=== PATIENT | female | born 1975 | race Caucasian/White ===

== ENCOUNTER 2022-03-01 08:09 | Observation (INO) ==
[2022-03-01 09:00] LABS: Amorphous Sediment,Urine Few per hpf (None-Few); Bacteria,Urine Few per hpf (None-Few); Mucus,Urine Few per lpf (None-Few); RBC,Urine 0-3 per hpf (0-3); Squamous Epithelial Cell,Urine Moderate per hpf (None-Few)
[2022-03-01] MEDS ORDERED: Ipratropium/Albuterol Neb 3 ML IH ONE (09:07)
[2022-03-01] MEDS ORDERED: Ondansetron 4 MG/2 ML VIAL IVP ONE (09:08)
[2022-03-01] MEDS ORDERED: 0.9 % Sodium Chloride 1,000 ML IVC ONE (09:08)
[2022-03-01 09:13] LABS: Influenza A PCR Negative (Negative); Influenza B PCR Negative (Negative); Resp. Syncytial Virus PCR Negative (Negative)
[2022-03-01 09:13] LABS: BUN/Creatinine Ratio 12 (6-26); Blood Urea Nitrogen 11 mg/dL (6-20); Carbon Dioxide 25 mEq/L (23-29); Chloride 102 mEq/L (98-107); Glucose 175 mg/dL (70-105); Osmolality,Calculated 288 (280-300); Sodium 137 mEq/L (136-145); Troponin I < 0.03 ng/mL (< 0.04); eGFR For African Americans > 60 (> 60); eGFR For Non-African Americans > 60 (> 60)
[2022-03-01 09:15] LABS: Hematocrit 30.9 % (35.3-44.9); Mean Corpuscular Volume 83.7 fL (83.0-100.0); Red Blood Count 3.69 M/mcL (3.82-4.97)
[2022-03-01 09:17] LABS: Hemoglobin 10.4 g/dL (11.5-15.4); Mean Corpuscular HGB Conc 33.7 g/dL (31.6-35.5); Mean Corpuscular Hemoglobin 28.2 pg (28.0-33.3); Neutrophils # 1.3 K/mcL (1.6-8.9); Red Cell Distribution Width 15.8 % (11.5-14.5); White Blood Count 1.8 K/mcL (4.3-11.1)
[2022-03-01 09:30] LABS: Alanine Aminotransferase 23 Units/L (7-52); Albumin 2.8 g/dL (3.5-5.7); Albumin/Globulin Ratio 0.7 (1.1-2.2); Alkaline Phosphatase 107 Units/L (34-104); Aspartate Amino Transferase 36 Units/L (13-39); Bilirubin,Direct 0.8 mg/dL (0.0-0.2); Bilirubin,Indirect 2.1 mg/dL (0.0-1.0); Bilirubin,Total 2.9 mg/dL (0.3-1.0); Globulin 3.8 g/dL (2.4-3.5); Lipase 152 Units/L (11-82); Total Protein 6.6 g/dL (6.4-8.9)
[2022-03-01 09:37] LABS: Mean Platelet Volume 11.9 fL (9.4-12.4); Platelet Count 43 K/mcL (140-400)
[2022-03-01 09:46] LABS: Eosinophils # 0.1 K/mcL (0.0-0.6); Lymphocytes # 0.3 K/mcL (0.6-4.6); Monocytes # 0.1 K/mcL (0.0-1.3)
[2022-03-01 09:47] LABS: Anisocytosis 1+ (Not Present); Hypochromasia Present (Not Present); Platelet Estimate Marked Decrease (Normal); Poikilocytosis 1+ (Not Present)
[2022-03-01] MEDS ORDERED: Iopamidol - 370 500 ML MLS IVP ONE ×2 (09:57→11:13)
[2022-03-01 10:00] LABS: Bilirubin,Urine Negative (Negative); Blood,Urine Small (Negative); Clarity,Urine Turbid (Clear); Color,Urine Yellow (Yellow); Glucose,Urine (UA) Normal (Normal); Hyaline Casts,Urine Few per lpf (None Seen); Ketones,Urine Negative (Negative); Leukocyte Esterase,Urine Small (Negative); Nitrite,Urine Negative (Negative); Protein,Urine Negative (Neg-Trace); Specific Gravity,Urine 1.013 (1.010-1.025)
[2022-03-01 10:47] LABS: SARS-CoV-2 by PCR (In House) Positive (Negative)
[2022-03-01] MEDS ORDERED: methylPREDNISolone 125 MG/2 ML VIAL IVP ONE (11:14)
[2022-03-01] MEDS ORDERED: Albuterol 2.5 MG/3 ML NEBULIZER IH ONE (11:15)
[2022-03-01] MEDS ORDERED: Naloxone 0.4 MG/ML INJ IVP PRN (13:01)
[2022-03-01] MEDS ORDERED: Mag Hydrox/Al Hydrox/Simeth 30 ML UDC PO PRN (13:01)
[2022-03-01] MEDS ORDERED: *HR* Dextrose 50 % in Water (Syg) 50 ML SYRINGE IVP PRN (13:04)
[2022-03-01] MEDS ORDERED: Dextrose Gel 15 GM/37.5 ML TUBE PO PRN ×2 (13:04)
[2022-03-01] MEDS ORDERED: D5% in Water 1,000 ML IVC PRN (13:04)
[2022-03-01] MEDS ORDERED: Perflutren Lipid Microsphere 1.3 ML in 0.9 % Sodium Chloride 8.7 ML IVP PRN (13:07)
[2022-03-01] MEDS: Insulin LISPRO 300 UNITS/3 ML VIAL SUBQ SCH ×3 (14:20→23:20)
[2022-03-01 14:41] LABS: Estimated Average Glucose 97 mg/dl
[2022-03-01 14:58] LABS: Eosinophils % 1.3 %; Hemoglobin 9.5 g/dL (11.5-15.4)
[2022-03-01 15:00] LABS: Basophils % 1.3 %; Immature Platelets 7.8 % (1.1-6.1); Lymphocytes # 0.1 K/mcL (0.6-4.6); Lymphocytes % 10.7 %; Mean Corpuscular HGB Conc 33.9 g/dL (31.6-35.5); Mean Corpuscular Hemoglobin 28.8 pg (28.0-33.3); Mean Corpuscular Volume 84.8 fL (83.0-100.0); Mean Platelet Volume 12.8 fL (9.4-12.4); Monocytes # 0.1 K/mcL (0.0-1.3); Neutrophils # 0.6 K/mcL (1.6-8.9); Red Cell Distribution Width 15.8 % (11.5-14.5); Segmented Neutrophils % 74.7 %
[2022-03-01 15:07] LABS: Platelet Count 33 K/mcL (140-400); White Blood Count 0.8 K/mcL (4.3-11.1)
[2022-03-01 15:15] LABS: Hypochromasia Present (Not Present); Poikilocytosis 2+ (Not Present)
[2022-03-01 15:16] LABS: Platelet Estimate Marked Decrease (Normal)
[2022-03-01] MEDS ORDERED: Ipratropium/Albuterol Neb 3 ML IH SCH (16:00)
[2022-03-01] MEDS ORDERED: Ibuprofen 600 MG TABLET PO ONE (17:00)
[2022-03-01] MEDS: Ipratropium 1 PUFF INHALER IH SCH ×2 (19:52→23:39)
[2022-03-01] MEDS: Neosporin OINT 15 GM TUBE TP SCH (23:14)
[2022-03-01] MEDS: Pregabalin 75 MG CAPSULE PO SCH (23:14)
[2022-03-01] MEDS: rOPINIRole 0.25 MG TABLET PO SCH (23:15)
[2022-03-02] MEDS ORDERED: Ibuprofen 600 MG TABLET PO ONE (02:05)
[2022-03-02] MEDS: Ipratropium 1 PUFF INHALER IH SCH ×6 (03:29→23:57)
[2022-03-02 03:39] LABS: Albumin 2.4 g/dL (3.5-5.7); Albumin/Globulin Ratio 0.7 (1.1-2.2); Bilirubin,Total 1.4 mg/dL (0.3-1.0); Calcium 7.3 mg/dL (8.6-10.3); Globulin 3.4 g/dL (2.4-3.5); Potassium 4.2 mEq/L (3.5-5.1); Total Protein 5.8 g/dL (6.4-8.9)
[2022-03-02 06:55] LABS: Hemoglobin 8.3 g/dL (11.5-15.4); Immature Granulocytes % 0.8 % (0-4)
[2022-03-02 06:57] LABS: Hematocrit 25.4 % (35.3-44.9); Immature Platelets 8.8 % (1.1-6.1); Lymphocytes # 0.2 K/mcL (0.6-4.6); Lymphocytes % 12.3 %; Mean Corpuscular HGB Conc 32.7 g/dL (31.6-35.5); Mean Corpuscular Hemoglobin 28.2 pg (28.0-33.3); Mean Corpuscular Volume 86.4 fL (83.0-100.0); Monocytes # 0.1 K/mcL (0.0-1.3); Monocytes % 6.6 %; Red Blood Count 2.94 M/mcL (3.82-4.97); Red Cell Distribution Width 15.6 % (11.5-14.5); Segmented Neutrophils % 80.3 %; White Blood Count 1.2 K/mcL (4.3-11.1)
[2022-03-02 07:03] LABS: Platelet Count 28 K/mcL (140-400)
[2022-03-02 07:34] LABS: Platelet Estimate Marked Decrease (Normal)
[2022-03-02 07:44] LABS: Folate 12.1 ng/mL (3.0-16.0)
[2022-03-02] MEDS: Insulin LISPRO 300 UNITS/3 ML VIAL SUBQ SCH ×4 (09:29→20:11)
[2022-03-02] MEDS: Nicotine 14 MG PATCH.TD24 TD SCH (09:29)
[2022-03-02] MEDS: Pregabalin 75 MG CAPSULE PO SCH ×3 (09:30→20:51)
[2022-03-02] MEDS: Neosporin OINT 15 GM TUBE TP SCH ×2 (09:30→20:52)
[2022-03-02] MEDS: GuaiFENesin/Dextromethorphan TABLET PO PRN (11:03)
[2022-03-02] MEDS: Torsemide 20 MG TABLET PO SCH (11:05)
[2022-03-02 15:48] LABS: INR 1.8; Prothrombin Time 20.5 Seconds (9.4-12.1)
[2022-03-02 15:58] LABS: % Iron Saturation 3 % (15-50); Iron 12 mcg/dL (50-170); Lactate Dehydrogenase 312 Units/L (140-271); Transferrin 258 mg/dL (203-362)
[2022-03-02 16:12] LABS: Ferritin 30 ng/mL (10-120)
[2022-03-02 16:51] LABS: Hepatitis B Surface Antigen Nonreactive (Nonreactive)
[2022-03-02 17:21] LABS: Hepatitis B Core IgM Nonreactive (Nonreactive)
[2022-03-02 17:23] LABS: Hepatitis A Antibody IgM Nonreactive (Nonreactive)
[2022-03-02 19:30] LABS: Hepatitis C Virus Antibody Reactive (Nonreactive)
[2022-03-02] MEDS: Melatonin 3 MG TABLET PO PRN (20:51)
[2022-03-02] MEDS: rOPINIRole 0.25 MG TABLET PO SCH (20:52)
[2022-03-03 01:58] LABS: Hematocrit 24.6 % (35.3-44.9); Mean Corpuscular Volume 85.7 fL (83.0-100.0); Red Blood Count 2.87 M/mcL (3.82-4.97)
[2022-03-03 02:00] LABS: Eosinophils % 2.5 %; Hemoglobin 8.1 g/dL (11.5-15.4); Immature Platelets 7.6 % (1.1-6.1); Lymphocytes # 0.3 K/mcL (0.6-4.6); Lymphocytes % 26.2 %; Mean Corpuscular HGB Conc 32.9 g/dL (31.6-35.5); Mean Corpuscular Hemoglobin 28.2 pg (28.0-33.3); Mean Platelet Volume 11.9 fL (9.4-12.4); Monocytes # 0.1 K/mcL (0.0-1.3); Monocytes % 8.2 %; Neutrophils # 0.8 K/mcL (1.6-8.9); Red Cell Distribution Width 15.8 % (11.5-14.5); Segmented Neutrophils % 63.1 %; White Blood Count 1.2 K/mcL (4.3-11.1)
[2022-03-03 02:03] LABS: Platelet Count 34 K/mcL (140-400)
[2022-03-03 02:16] LABS: Blood Urea Nitrogen 18 mg/dL (6-20); Calcium 7.2 mg/dL (8.6-10.3); Carbon Dioxide 26 mEq/L (23-29); Chloride 108 mEq/L (98-107); Glucose 166 mg/dL (70-105); Osmolality,Calculated 294 (280-300); Potassium 3.5 mEq/L (3.5-5.1); Sodium 139 mEq/L (136-145)
[2022-03-03 03:22] LABS: BUN/Creatinine Ratio 21 (6-26)
[2022-03-03 03:23] LABS: eGFR For African Americans > 60 (> 60); eGFR For Non-African Americans > 60 (> 60)
[2022-03-03] MEDS: Ipratropium 1 PUFF INHALER IH SCH ×6 (03:37→23:07)
[2022-03-03] MEDS: Insulin LISPRO 300 UNITS/3 ML VIAL SUBQ SCH ×4 (09:51→21:03)
[2022-03-03] MEDS: Torsemide 20 MG TABLET PO SCH (09:53)
[2022-03-03] MEDS: Nicotine 14 MG PATCH.TD24 TD SCH (09:53)
[2022-03-03] MEDS: Pregabalin 75 MG CAPSULE PO SCH ×3 (09:53→21:04)
[2022-03-03] MEDS: Neosporin OINT 15 GM TUBE TP SCH ×2 (09:55→21:04)
[2022-03-03] MEDS ORDERED: Ibuprofen 600 MG TABLET PO ONE (12:17)
[2022-03-03] MEDS: cefTRIAXone 1,000 MG in 0.9 % Sodium Chloride 10 ML IVP SCH (14:45)
[2022-03-03] MEDS: rOPINIRole 0.25 MG TABLET PO SCH (21:04)
[2022-03-04] MEDS: Ipratropium 1 PUFF INHALER IH SCH ×6 (04:34→23:04)
[2022-03-04] MEDS: Insulin LISPRO 300 UNITS/3 ML VIAL SUBQ SCH ×4 (08:44→20:01)
[2022-03-04] MEDS: Nicotine 14 MG PATCH.TD24 TD SCH (09:15)
[2022-03-04] MEDS: Pregabalin 75 MG CAPSULE PO SCH ×3 (09:15→20:04)
[2022-03-04] MEDS: Torsemide 20 MG TABLET PO SCH (09:15)
[2022-03-04] MEDS: Neosporin OINT 15 GM TUBE TP SCH ×2 (09:16→20:01)
[2022-03-04] MEDS: cefTRIAXone 1,000 MG in 0.9 % Sodium Chloride 10 ML IVP SCH (09:16)
[2022-03-04] MEDS: GuaiFENesin/Dextromethorphan TABLET PO PRN ×2 (10:15→23:46)
[2022-03-04 11:25] LABS: Hematocrit 28.7 % (35.3-44.9); Hemoglobin 9.4 g/dL (11.5-15.4); Mean Corpuscular HGB Conc 32.8 g/dL (31.6-35.5); Mean Corpuscular Hemoglobin 28.5 pg (28.0-33.3); Mean Platelet Volume 13.5 fL (9.4-12.4); Monocytes # 0.1 K/mcL (0.0-1.3); Red Cell Distribution Width 15.9 % (11.5-14.5); White Blood Count 1.5 K/mcL (4.3-11.1)
[2022-03-04 11:27] LABS: Platelet Count 39 K/mcL (140-400)
[2022-03-04 11:47] LABS: Lymphocytes # 0.6 K/mcL (0.6-4.6); Neutrophils # 0.8 K/mcL (1.6-8.9); Poikilocytosis 1+ (Not Present)
[2022-03-04 11:48] LABS: Hypochromasia Present (Not Present); Platelet Estimate Decreased (Normal)
[2022-03-04 11:53] LABS: BUN/Creatinine Ratio 24 (6-26); Blood Urea Nitrogen 17 mg/dL (6-20); Calcium 7.7 mg/dL (8.6-10.3); Carbon Dioxide 26 mEq/L (23-29); Chloride 108 mEq/L (98-107); Glucose 141 mg/dL (70-105); Osmolality,Calculated 294 (280-300); Potassium 3.6 mEq/L (3.5-5.1); Sodium 140 mEq/L (136-145); eGFR For African Americans > 60 (> 60); eGFR For Non-African Americans > 60 (> 60)
[2022-03-04] MEDS ORDERED: Fluconazole 150 MG TABLET PO ONE (19:36)
[2022-03-04] MEDS: rOPINIRole 0.25 MG TABLET PO SCH (20:01)
[2022-03-04] MEDS: Lactobacillus 1 EACH CAP.SPRINK PO SCH (20:02)
[2022-03-05] MEDS: Ipratropium 1 PUFF INHALER IH SCH ×6 (04:14→23:39)
[2022-03-05 05:56] LABS: Basophils % 0.6 %; Immature Granulocytes % 0.6 % (0-4)
[2022-03-05 05:57] LABS: Eosinophils % 5.7 %; Hematocrit 29.4 % (35.3-44.9); Hemoglobin 9.8 g/dL (11.5-15.4); Immature Platelets 8.7 % (1.1-6.1); Lymphocytes % 40.8 %; Mean Corpuscular HGB Conc 33.3 g/dL (31.6-35.5); Mean Corpuscular Hemoglobin 28.2 pg (28.0-33.3); Mean Corpuscular Volume 84.5 fL (83.0-100.0); Mean Platelet Volume 12.1 fL (9.4-12.4); Monocytes % 6.9 %; Red Blood Count 3.48 M/mcL (3.82-4.97); Red Cell Distribution Width 15.6 % (11.5-14.5); Segmented Neutrophils % 45.4 %; White Blood Count 1.7 K/mcL (4.3-11.1)
[2022-03-05 05:58] LABS: Eosinophils # 0.1 K/mcL (0.0-0.6); Lymphocytes # 0.7 K/mcL (0.6-4.6); Monocytes # 0.1 K/mcL (0.0-1.3); Neutrophils # 0.8 K/mcL (1.6-8.9)
[2022-03-05 06:20] LABS: Platelet Count 36 K/mcL (140-400)
[2022-03-05 06:21] LABS: Platelet Estimate Decreased (Normal)
[2022-03-05 06:23] LABS: BUN/Creatinine Ratio 19 (6-26); Blood Urea Nitrogen 14 mg/dL (6-20); Calcium 7.8 mg/dL (8.6-10.3); Carbon Dioxide 29 mEq/L (23-29); Chloride 105 mEq/L (98-107); Glucose 82 mg/dL (70-105); Osmolality,Calculated 286 (280-300); Potassium 3.5 mEq/L (3.5-5.1); Sodium 138 mEq/L (136-145); eGFR For African Americans > 60 (> 60); eGFR For Non-African Americans > 60 (> 60)
[2022-03-05] MEDS: Lactobacillus 1 EACH CAP.SPRINK PO SCH ×2 (08:36→21:05)
[2022-03-05] MEDS: MOM Conc 10 ML UD.LIQ PO PRN ×2 (08:36→21:12)
[2022-03-05] MEDS: Torsemide 20 MG TABLET PO SCH (08:36)
[2022-03-05] MEDS: Pregabalin 75 MG CAPSULE PO SCH ×3 (08:36→21:04)
[2022-03-05] MEDS: Nicotine 14 MG PATCH.TD24 TD SCH (08:40)
[2022-03-05] MEDS: Insulin LISPRO 300 UNITS/3 ML VIAL SUBQ SCH ×4 (08:40→20:53)
[2022-03-05] MEDS: cefTRIAXone 1,000 MG in 0.9 % Sodium Chloride 10 ML IVP SCH (08:42)
[2022-03-05 09:58] LABS: ANA IgG by ELISA NONE DETECTED (None Detected)
[2022-03-05 10:18] LABS: AFP Tumor Marker Non-Pregnant 4 ng/mL (0-9); Kappa Qnt Free Light Chains 86.22 mg/L (3.30-19.40); Lambda Qnt Free Light Chains 68.16 mg/L (5.71-26.30)
[2022-03-05] MEDS: Neosporin OINT 15 GM TUBE TP SCH ×2 (10:21→21:05)
[2022-03-05] MEDS: GuaiFENesin/Dextromethorphan TABLET PO PRN ×2 (15:41→21:12)
[2022-03-05] MEDS: rOPINIRole 0.25 MG TABLET PO SCH (21:09)
[2022-03-05] MEDS: Melatonin 3 MG TABLET PO PRN (21:12)
[2022-03-06] MEDS: Ipratropium 1 PUFF INHALER IH SCH ×6 (04:01→23:34)
[2022-03-06 06:14] LABS: Basophils % 0.6 %; Eosinophils # 0.1 K/mcL (0.0-0.6); Eosinophils % 5.2 %; Hematocrit 28.4 % (35.3-44.9); Hemoglobin 9.2 g/dL (11.5-15.4); Immature Platelets 8.2 % (1.1-6.1); Lymphocytes # 0.5 K/mcL (0.6-4.6); Lymphocytes % 34.4 %; Mean Corpuscular HGB Conc 32.4 g/dL (31.6-35.5); Mean Corpuscular Hemoglobin 27.5 pg (28.0-33.3); Mean Corpuscular Volume 84.8 fL (83.0-100.0); Mean Platelet Volume 11.6 fL (9.4-12.4); Monocytes # 0.1 K/mcL (0.0-1.3); Monocytes % 7.8 %; Neutrophils # 0.8 K/mcL (1.6-8.9); Red Blood Count 3.35 M/mcL (3.82-4.97); Red Cell Distribution Width 15.4 % (11.5-14.5); White Blood Count 1.5 K/mcL (4.3-11.1)
[2022-03-06 06:15] LABS: Platelet Count 38 K/mcL (140-400)
[2022-03-06] MEDS: Lactobacillus 1 EACH CAP.SPRINK PO SCH ×2 (10:29→20:10)
[2022-03-06] MEDS: GuaiFENesin/Dextromethorphan TABLET PO PRN (10:29)
[2022-03-06] MEDS: Pregabalin 75 MG CAPSULE PO SCH ×3 (10:29→20:10)
[2022-03-06] MEDS: Torsemide 20 MG TABLET PO SCH (10:29)
[2022-03-06] MEDS: Nicotine 14 MG PATCH.TD24 TD SCH (10:30)
[2022-03-06] MEDS: Neosporin OINT 15 GM TUBE TP SCH ×2 (10:36→20:10)
[2022-03-06] MEDS: Ibuprofen 600 MG TABLET PO PRN ×2 (10:36→20:19)
[2022-03-06] MEDS: Ondansetron ODT 4 MG TAB.RAPDIS SL PRN ×2 (10:38→20:19)
[2022-03-06] MEDS: Insulin LISPRO 300 UNITS/3 ML VIAL SUBQ SCH ×4 (10:41→20:10)
[2022-03-06] MEDS ORDERED: Lactulose Oral Soln 20 GM/30 ML UDC PO SCH (12:30)
[2022-03-06] MEDS: Albumin 25% 25gram/100mL 25 GM/100 ML IV.SOLN IVC SCH ×3 (12:55→17:36)
[2022-03-06] MEDS ORDERED: Lactulose Oral Soln 20 GM/30 ML UDC PO ONE (13:47)
[2022-03-06] MEDS ORDERED: Lactulose Oral Soln 20 GM/30 ML UDC PO STA (13:48)
[2022-03-06] MEDS ORDERED: Lactulose Oral Soln 20 GM/30 ML UDC PO PRN (15:01)
[2022-03-06] MEDS: rOPINIRole 0.25 MG TABLET PO SCH (20:10)
[2022-03-07 03:28] LABS: Alanine Aminotransferase 18 Units/L (7-52); Albumin/Globulin Ratio 1.1 (1.1-2.2); Alkaline Phosphatase 82 Units/L (34-104); Aspartate Amino Transferase 27 Units/L (13-39); BUN/Creatinine Ratio 18 (6-26); Bilirubin,Total 1.2 mg/dL (0.3-1.0); Blood Urea Nitrogen 15 mg/dL (6-20); Calcium 8.3 mg/dL (8.6-10.3); Carbon Dioxide 28 mEq/L (23-29); Chloride 109 mEq/L (98-107); Globulin 2.8 g/dL (2.4-3.5); Glucose 99 mg/dL (70-105); Magnesium 1.6 mg/dL (1.6-2.6); Osmolality,Calculated 289 (280-300); Potassium 3.7 mEq/L (3.5-5.1); Sodium 139 mEq/L (136-145); Total Protein 5.8 g/dL (6.4-8.9); eGFR For African Americans > 60 (> 60); eGFR For Non-African Americans > 60 (> 60)
[2022-03-07 03:33] LABS: Eosinophils # 0.1 K/mcL (0.0-0.6); Hematocrit 25.4 % (35.3-44.9); Hemoglobin 8.2 g/dL (11.5-15.4); Immature Platelets 9.9 % (1.1-6.1); Lymphocytes # 0.5 K/mcL (0.6-4.6); Mean Corpuscular HGB Conc 32.3 g/dL (31.6-35.5); Mean Corpuscular Hemoglobin 27.7 pg (28.0-33.3); Mean Corpuscular Volume 85.8 fL (83.0-100.0); Monocytes # 0.2 K/mcL (0.0-1.3); Neutrophils # 0.7 K/mcL (1.6-8.9); Red Blood Count 2.96 M/mcL (3.82-4.97); Red Cell Distribution Width 15.2 % (11.5-14.5); White Blood Count 1.4 K/mcL (4.3-11.1)
[2022-03-07 04:01] LABS: Platelet Count 29 K/mcL (140-400)
[2022-03-07] MEDS: Ipratropium 1 PUFF INHALER IH SCH ×5 (04:01→20:09)
[2022-03-07 06:21] LABS: Anisocytosis 1+ (Not Present); Platelet Estimate Marked Decrease (Normal)
[2022-03-07] MEDS: Ibuprofen 600 MG TABLET PO PRN (09:46)
[2022-03-07] MEDS: Pregabalin 75 MG CAPSULE PO SCH ×3 (09:47→20:17)
[2022-03-07] MEDS: Torsemide 20 MG TABLET PO SCH (09:47)
[2022-03-07] MEDS: Nicotine 14 MG PATCH.TD24 TD SCH (09:47)
[2022-03-07] MEDS: Lactobacillus 1 EACH CAP.SPRINK PO SCH ×2 (09:47→20:17)
[2022-03-07] MEDS: Neosporin OINT 15 GM TUBE TP SCH ×2 (09:47→20:18)
[2022-03-07] MEDS: Insulin LISPRO 300 UNITS/3 ML VIAL SUBQ SCH ×4 (10:03→21:14)
[2022-03-07] MEDS: Iron Sucrose Complex 250 MG in 0.9 % Sodium Chloride 250 ML IVPB SCH (12:53)
[2022-03-07 18:17] LABS: Alpha 2 Globulin (PEP) 0.42 g/dL (0.48-1.05); Beta Globulin (PEP) 0.81 g/dL (0.48-1.10)
[2022-03-07] MEDS: rOPINIRole 0.25 MG TABLET PO SCH (20:17)
[2022-03-07] MEDS: Saline Nasal Spray 44 ML BOTTLE NS PRN (20:24)
[2022-03-08] MEDS: Ipratropium 1 PUFF INHALER IH SCH ×7 (00:23→23:59)
[2022-03-08 06:22] LABS: Hemoglobin 8.5 g/dL (11.5-15.4); Red Cell Distribution Width 15.2 % (11.5-14.5); White Blood Count 1.4 K/mcL (4.3-11.1)
[2022-03-08 06:24] LABS: Immature Platelets 11.4 % (1.1-6.1); Mean Corpuscular HGB Conc 32.7 g/dL (31.6-35.5); Mean Corpuscular Volume 85.5 fL (83.0-100.0); Red Blood Count 3.04 M/mcL (3.82-4.97)
[2022-03-08 06:26] LABS: Platelet Count 30 K/mcL (140-400)
[2022-03-08 06:43] LABS: Alanine Aminotransferase 18 Units/L (7-52); Albumin 2.9 g/dL (3.5-5.7); Alkaline Phosphatase 87 Units/L (34-104); Aspartate Amino Transferase 29 Units/L (13-39); BUN/Creatinine Ratio 19 (6-26); Bilirubin,Total 1.1 mg/dL (0.3-1.0); Blood Urea Nitrogen 17 mg/dL (6-20); Calcium 8.4 mg/dL (8.6-10.3); Carbon Dioxide 28 mEq/L (23-29); Chloride 106 mEq/L (98-107); Globulin 2.9 g/dL (2.4-3.5); Glucose 93 mg/dL (70-105); Osmolality,Calculated 285 (280-300); Potassium 3.6 mEq/L (3.5-5.1); Sodium 137 mEq/L (136-145); Total Protein 5.8 g/dL (6.4-8.9); eGFR For African Americans > 60 (> 60); eGFR For Non-African Americans > 60 (> 60)
[2022-03-08 07:35] LABS: IFE Reflexed NOT DONE
[2022-03-08] MEDS: Insulin LISPRO 300 UNITS/3 ML VIAL SUBQ SCH ×4 (09:25→20:30)
[2022-03-08] MEDS: Torsemide 20 MG TABLET PO SCH (09:33)
[2022-03-08] MEDS: Lactobacillus 1 EACH CAP.SPRINK PO SCH ×2 (09:33→20:29)
[2022-03-08] MEDS: Pregabalin 75 MG CAPSULE PO SCH ×3 (09:34→20:29)
[2022-03-08] MEDS: Nicotine 14 MG PATCH.TD24 TD SCH (09:34)
[2022-03-08] MEDS: Saline Nasal Spray 44 ML BOTTLE NS PRN (09:35)
[2022-03-08] MEDS: Iron Sucrose Complex 250 MG in 0.9 % Sodium Chloride 250 ML IVPB SCH (10:57)
[2022-03-08] MEDS: Neosporin OINT 15 GM TUBE TP SCH ×2 (10:57→20:30)
[2022-03-08] MEDS: rOPINIRole 0.25 MG TABLET PO SCH (20:29)
[2022-03-08 23:46] VITALS: BP 109/63; PULSE 68; TEMP 98.4
[2022-03-09] MEDS: Ipratropium 1 PUFF INHALER IH SCH ×3 (04:21→11:10)
[2022-03-09 07:44] VITALS: O2SAT 94
[2022-03-09] MEDS: Nicotine 14 MG PATCH.TD24 TD SCH (10:13)
[2022-03-09] MEDS: Insulin LISPRO 300 UNITS/3 ML VIAL SUBQ SCH (10:13)
[2022-03-09] MEDS: Pregabalin 75 MG CAPSULE PO SCH (10:14)
[2022-03-09] MEDS: Lactobacillus 1 EACH CAP.SPRINK PO SCH (10:14)
[2022-03-09] MEDS: Neosporin OINT 15 GM TUBE TP SCH (10:15)
[2022-03-09] MEDS: Torsemide 20 MG TABLET PO SCH (10:15)
[2022-03-09] MEDS: Iron Sucrose Complex 250 MG in 0.9 % Sodium Chloride 250 ML IVPB SCH (10:20)
== END 2022-03-09 12:35 | disposition home or self-care (01) ==
LOC: EMEROOARM 08:09 → 3NENU 08:09 → SUATTDRO 12:50 → 3NENU 14:00
PROVIDERS: ADMIT Internal Medicine; ATTEND Student in an Organized Health Care Education/Training Program

== ENCOUNTER 2022-03-27 16:45 | Observation (INO) ==
[2022-03-27 17:45] LABS: Hemoglobin 10.5 g/dL (11.5-15.4); Immature Granulocytes % 0.3 % (0-4); Mean Corpuscular Volume 87.9 fL (83.0-100.0)
[2022-03-27 17:47] LABS: Eosinophils # 0.1 K/mcL (0.0-0.6); Eosinophils % 4.7 %; Hematocrit 31.3 % (35.3-44.9); Immature Platelets 7.7 % (1.1-6.1); Lymphocytes # 0.8 K/mcL (0.6-4.6); Lymphocytes % 25.4 %; Mean Corpuscular HGB Conc 33.5 g/dL (31.6-35.5); Mean Corpuscular Hemoglobin 29.5 pg (28.0-33.3); Monocytes # 0.3 K/mcL (0.0-1.3); Monocytes % 9.8 %; Platelet Count 38 K/mcL (140-400); Red Blood Count 3.56 M/mcL (3.82-4.97); Red Cell Distribution Width 18.9 % (11.5-14.5); Segmented Neutrophils % 58.8 %
[2022-03-27 17:48] LABS: Neutrophils # 1.8 K/mcL (1.6-8.9)
[2022-03-27 18:05] LABS: Alanine Aminotransferase 27 Units/L (7-52); Albumin 3.3 g/dL (3.5-5.7); Alkaline Phosphatase 112 Units/L (34-104); Aspartate Amino Transferase 37 Units/L (13-39); BUN/Creatinine Ratio 16 (6-26); Bilirubin,Direct 0.6 mg/dL (0.0-0.2); Bilirubin,Total 2.6 mg/dL (0.3-1.0); Blood Urea Nitrogen 16 mg/dL (6-20); Calcium 8.9 mg/dL (8.6-10.3); Carbon Dioxide 28 mEq/L (23-29); Chloride 105 mEq/L (98-107); Globulin 3.3 g/dL (2.4-3.5); Glucose 121 mg/dL (70-105); Lipase 73 Units/L (11-82); Osmolality,Calculated 294 (280-300); Sodium 141 mEq/L (136-145); Total Protein 6.6 g/dL (6.4-8.9); Troponin I < 0.03 ng/mL (< 0.04)
[2022-03-27 18:18] LABS: VBG HCO3 29 mEq/L (21-27); VBG PCO2 41 mmHg (41-51); VBG PH 7.45 pH Units (7.32-7.42); VBG PO2 63 mmHg (25-50)
[2022-03-27 19:35] LABS: Bacteria,Urine Few per hpf (None-Few); RBC,Urine 0-3 per hpf (0-3); Squamous Epithelial Cell,Urine Moderate per hpf (None-Few); WBC,Urine 0-3 per hpf (0-3)
[2022-03-27 19:36] LABS: Bilirubin,Urine Negative (Negative); Blood,Urine Trace (Negative); Clarity,Urine Clear (Clear); Color,Urine Yellow (Yellow); Glucose,Urine (UA) Normal (Normal); Ketones,Urine Negative (Negative); Leukocyte Esterase,Urine Negative (Negative); Nitrite,Urine Negative (Negative); PH,Urine 7.5 pH Units (5.0-8.0); Protein,Urine Negative (Neg-Trace); Specific Gravity,Urine 1.014 (1.010-1.025)
[2022-03-27] MEDS ORDERED: Lactulose Oral Soln 20 GM/30 ML UDC PO ONE (20:35)
[2022-03-27] MEDS ORDERED: Naloxone 0.4 MG/ML INJ IVP PRN (23:35)
[2022-03-28] MEDS ORDERED: Lactulose Oral Soln 20 GM/30 ML UDC PO ONE (00:30)
[2022-03-28] MEDS: Ondansetron ODT 4 MG TAB.RAPDIS SL PRN ×2 (00:42→21:21)
[2022-03-28] MEDS ORDERED: Acetaminophen 325 MG TABLET PO PRN (08:29)
[2022-03-28] MEDS: Pregabalin 75 MG CAPSULE PO SCH ×3 (09:32→20:47)
[2022-03-28] MEDS: Furosemide 20 MG TABLET PO SCH (09:32)
[2022-03-28] MEDS: Nicotine 14 MG PATCH.TD24 TD SCH (09:32)
[2022-03-28] MEDS: *HR* HYDROcodone/Acet 5/325 mg TABLET PO PRN ×3 (09:32→23:39)
[2022-03-28] MEDS: Lactulose Oral Soln 20 GM/30 ML UDC PO SCH ×2 (09:33→20:47)
[2022-03-28 11:25] LABS: Albumin 3.3 g/dL (3.5-5.7); Bilirubin,Total 3.3 mg/dL (0.3-1.0); Calcium 9.3 mg/dL (8.6-10.3); Globulin 3.4 g/dL (2.4-3.5); Magnesium 1.7 mg/dL (1.6-2.6); Phosphorous 4.1 mg/dL (2.7-4.5); Potassium 3.4 mEq/L (3.5-5.1); Total Protein 6.7 g/dL (6.4-8.9)
[2022-03-28] MEDS ORDERED: Iopamidol - 370 500 ML MLS IVP ONE (11:34)
[2022-03-28 11:42] LABS: Basophils % 1.2 %; Mean Corpuscular HGB Conc 33.1 g/dL (31.6-35.5); Mean Corpuscular Hemoglobin 29.5 pg (28.0-33.3)
[2022-03-28 11:43] LABS: Eosinophils # 0.1 K/mcL (0.0-0.6); Hemoglobin 10.6 g/dL (11.5-15.4); Immature Platelets 9.9 % (1.1-6.1); Lymphocytes # 0.7 K/mcL (0.6-4.6); Mean Corpuscular Volume 89.1 fL (83.0-100.0); Monocytes # 0.3 K/mcL (0.0-1.3); Monocytes % 12.7 %; Neutrophils # 1.5 K/mcL (1.6-8.9); Red Blood Count 3.59 M/mcL (3.82-4.97); Red Cell Distribution Width 18.8 % (11.5-14.5); Segmented Neutrophils % 56.1 %; White Blood Count 2.6 K/mcL (4.3-11.1)
[2022-03-28 11:47] LABS: Platelet Count 35 K/mcL (140-400)
[2022-03-28 11:48] LABS: Platelet Estimate Decreased (Normal)
[2022-03-28] MEDS ORDERED: Lactulose 200 GM, Sodium Chloride IRRigation 700 ML RC ONE (14:18)
[2022-03-28] MEDS: Melatonin 3 MG TABLET PO PRN (21:21)
[2022-03-28] MEDS ORDERED: Neosporin OINT 1 APPL PACKET TP ONE (23:37)
[2022-03-29] MEDS ORDERED: Neosporin OINT 15 GM TUBE TP ONE (00:45)
[2022-03-29] MEDS ORDERED: Ketorolac 30 MG/ML VIAL IVP ONE (03:07)
[2022-03-29 06:38] LABS: Hemoglobin 10.1 g/dL (11.5-15.4); Red Cell Distribution Width 18.4 % (11.5-14.5)
[2022-03-29 06:40] LABS: Eosinophils # 0.1 K/mcL (0.0-0.6); Hematocrit 30.7 % (35.3-44.9); Immature Platelets 8.9 % (1.1-6.1); Mean Corpuscular HGB Conc 32.9 g/dL (31.6-35.5); Mean Corpuscular Hemoglobin 29.4 pg (28.0-33.3); Mean Corpuscular Volume 89.2 fL (83.0-100.0); Red Blood Count 3.44 M/mcL (3.82-4.97); White Blood Count 1.9 K/mcL (4.3-11.1)
[2022-03-29 06:47] LABS: Platelet Count 27 K/mcL (140-400)
[2022-03-29 06:53] LABS: Calcium 8.9 mg/dL (8.6-10.3); Potassium 3.6 mEq/L (3.5-5.1)
[2022-03-29] MEDS ORDERED: Albuterol 2.5 MG/3 ML NEBULIZER IH PRN (07:34)
[2022-03-29 07:49] LABS: Lymphocytes # 0.3 K/mcL (0.6-4.6); Monocytes # 0.2 K/mcL (0.0-1.3); Neutrophils # 1.3 K/mcL (1.6-8.9)
[2022-03-29] MEDS: Ipratropium/Albuterol Neb 3 ML IH SCH ×5 (07:49→23:02)
[2022-03-29 07:51] LABS: Platelet Estimate Decreased (Normal)
[2022-03-29] MEDS: Folic Acid 1 MG TABLET PO SCH (09:25)
[2022-03-29] MEDS: Ondansetron ODT 4 MG TAB.RAPDIS SL PRN ×2 (09:25→21:16)
[2022-03-29] MEDS: Furosemide 20 MG TABLET PO SCH (09:25)
[2022-03-29] MEDS: Thiamine (B-1) 100 MG TABLET PO SCH (09:25)
[2022-03-29] MEDS: Pregabalin 75 MG CAPSULE PO SCH ×3 (09:25→21:16)
[2022-03-29] MEDS: Nicotine 14 MG PATCH.TD24 TD SCH (09:26)
[2022-03-29] MEDS: Lactulose Oral Soln 20 GM/30 ML UDC PO SCH ×3 (09:26→21:15)
[2022-03-29] MEDS: *HR* HYDROcodone/Acet 5/325 mg TABLET PO PRN ×2 (11:01→21:16)
[2022-03-29] MEDS ORDERED: Lactulose 200 GM, Sodium Chloride IRRigation 700 ML RC PRN (16:08)
[2022-03-29] MEDS: Melatonin 3 MG TABLET PO PRN (21:16)
[2022-03-30 02:49] LABS: Basophils % 1.1 %
[2022-03-30 02:51] LABS: Eosinophils # 0.1 K/mcL (0.0-0.6); Eosinophils % 4.4 %; Hematocrit 30.8 % (35.3-44.9); Hemoglobin 10.1 g/dL (11.5-15.4); Immature Platelets 9.9 % (1.1-6.1); Lymphocytes # 0.4 K/mcL (0.6-4.6); Lymphocytes % 23.8 %; Mean Corpuscular HGB Conc 32.8 g/dL (31.6-35.5); Mean Corpuscular Hemoglobin 29.3 pg (28.0-33.3); Mean Corpuscular Volume 89.3 fL (83.0-100.0); Monocytes # 0.3 K/mcL (0.0-1.3); Monocytes % 17.1 %; Red Blood Count 3.45 M/mcL (3.82-4.97); Red Cell Distribution Width 18.2 % (11.5-14.5); White Blood Count 1.8 K/mcL (4.3-11.1)
[2022-03-30 02:57] LABS: Segmented Neutrophils % 54.4 %
[2022-03-30 02:59] LABS: Platelet Count 29 K/mcL (140-400)
[2022-03-30 03:12] LABS: Calcium 8.7 mg/dL (8.6-10.3); Potassium 3.8 mEq/L (3.5-5.1)
[2022-03-30 03:24] VITALS: O2SAT 98
[2022-03-30 03:28] LABS: Anisocytosis 1+ (Not Present); Platelet Estimate Marked Decrease (Normal)
[2022-03-30] MEDS: Ipratropium/Albuterol Neb 3 ML IH SCH ×4 (03:53→15:48)
[2022-03-30] MEDS: *HR* HYDROcodone/Acet 5/325 mg TABLET PO PRN ×2 (04:54→12:09)
[2022-03-30] MEDS: Thiamine (B-1) 100 MG TABLET PO SCH (08:01)
[2022-03-30] MEDS: Folic Acid 1 MG TABLET PO SCH (08:01)
[2022-03-30] MEDS: Furosemide 20 MG TABLET PO SCH (08:02)
[2022-03-30] MEDS: Pregabalin 75 MG CAPSULE PO SCH ×2 (08:02→17:51)
[2022-03-30] MEDS: Lactulose Oral Soln 20 GM/30 ML UDC PO SCH ×2 (08:02→17:51)
[2022-03-30] MEDS: Nicotine 14 MG PATCH.TD24 TD SCH (08:02)
[2022-03-30] MEDS: Ondansetron ODT 4 MG TAB.RAPDIS SL PRN (08:39)
[2022-03-30] MEDS ORDERED: hydrOXYzine pamoate 25 MG CAPSULE PO ONE (11:15)
[2022-03-30 11:53] VITALS: BP 121/71; PULSE 72; TEMP 98.6
[2022-03-30] MEDS ORDERED: *HR* LORazepam 0.5 MG TABLET PO ONE (14:15)
== END 2022-03-30 18:24 | disposition home or self-care (01) ==
LOC: EMEROOARM 16:45 → 2ANU 16:45 → SUATTDRO 22:08 → 2ANU 23:22
PROVIDERS: ADMIT Internal Medicine; ATTEND Internal Medicine

== ENCOUNTER 2022-04-03 01:50 | Inpatient (IN) ==
[2022-04-03 02:55] LABS: Mean Corpuscular Volume 87.2 fL (83.0-100.0)
[2022-04-03 02:57] LABS: Basophils % 0.9 %; Eosinophils # 0.1 K/mcL (0.0-0.6); Eosinophils % 3.6 %; Hematocrit 32.8 % (35.3-44.9); Immature Platelets 11.4 % (1.1-6.1); Lymphocytes # 0.8 K/mcL (0.6-4.6); Lymphocytes % 35.1 %; Mean Corpuscular HGB Conc 33.5 g/dL (31.6-35.5); Mean Corpuscular Hemoglobin 29.3 pg (28.0-33.3); Monocytes # 0.3 K/mcL (0.0-1.3); Monocytes % 13.3 %; Neutrophils # 1.1 K/mcL (1.6-8.9); Red Blood Count 3.76 M/mcL (3.82-4.97); Segmented Neutrophils % 47.1 %; White Blood Count 2.3 K/mcL (4.3-11.1)
[2022-04-03 02:58] LABS: Alanine Aminotransferase 46 Units/L (7-52); Albumin 3.1 g/dL (3.5-5.7); Albumin/Globulin Ratio 0.8 (1.1-2.2); Alkaline Phosphatase 132 Units/L (34-104); Aspartate Amino Transferase 72 Units/L (13-39); BUN/Creatinine Ratio 15 (6-26); Bilirubin,Direct 0.6 mg/dL (0.0-0.2); Bilirubin,Indirect 1.3 mg/dL (0.0-1.0); Bilirubin,Total 1.9 mg/dL (0.3-1.0); Blood Urea Nitrogen 19 mg/dL (6-20); Calcium 8.7 mg/dL (8.6-10.3); Carbon Dioxide 25 mEq/L (23-29); Chloride 108 mEq/L (98-107); Globulin 3.7 g/dL (2.4-3.5); Glucose 117 mg/dL (70-105); Lipase 85 Units/L (11-82); Osmolality,Calculated 295 (280-300); Potassium 3.8 mEq/L (3.5-5.1); Sodium 141 mEq/L (136-145); Total Protein 6.8 g/dL (6.4-8.9)
[2022-04-03 02:59] LABS: Platelet Count 40 K/mcL (140-400)
[2022-04-03 03:06] LABS: Acetaminophen < 10 mcg/mL (10-20); Ethanol < 10 mg/dL (Less than 10); Salicylate < 2.5 mg/dL (15.0-30.0)
[2022-04-03 04:00] LABS: Platelet Estimate Decreased (Normal)
[2022-04-03] MEDS ORDERED: Lactulose Oral Soln 20 GM/30 ML UDC PO ONE (04:01)
[2022-04-03] MEDS ORDERED: 0.9 % Sodium Chloride 1,000 ML IVC ONE (04:01)
[2022-04-03] MEDS ORDERED: Lactulose 200 GM, Sodium Chloride IRRigation 700 ML RC ONE (04:30)
[2022-04-03] MEDS ORDERED: Naloxone 0.4 MG/ML INJ IVP PRN (04:32)
[2022-04-03] MEDS ORDERED: Melatonin 3 MG TABLET PO PRN (04:32)
[2022-04-03 04:35] LABS: Bilirubin,Urine Negative (Negative); Blood,Urine Negative (Negative); Clarity,Urine Clear (Clear); Color,Urine Light-Yellow (Yellow); Glucose,Urine (UA) Normal (Normal); Ketones,Urine Negative (Negative); Leukocyte Esterase,Urine Negative (Negative); Nitrite,Urine Negative (Negative); Protein,Urine Negative (Neg-Trace); Specific Gravity,Urine 1.008 (1.010-1.025); Urobilinogen,Urine Normal (Normal)
[2022-04-03 04:45] LABS: Amphetamine Screen,Urine Negative ng/mL (Cutoff=1000); Barbiturate Screen,Urine Negative ng/mL (Cutoff=200); Benzodiazepines Screen,Urine Negative ng/mL (Cutoff=200); Cannabinoid Screen,Urine Negative ng/mL (Cutoff = 50); Cocaine Screen,Urine Negative ng/mL (Cutoff= 300); Opiate Screen,Urine Negative ng/mL (Cutoff=300); Phencyclidine Screen,Urine Negative ng/mL (Cutoff=25)
[2022-04-03] MEDS ORDERED: Thiamine (B-1) 100 MG in 0.9 % Sodium Chloride 50 ML IVPB ONE (04:45)
[2022-04-03] MEDS: Nicotine 14 MG PATCH.TD24 TD SCH (08:36)
[2022-04-03] MEDS: Pregabalin 75 MG CAPSULE PO SCH ×3 (08:36→21:44)
[2022-04-03] MEDS: Lactulose Oral Soln 20 GM/30 ML UDC PO SCH ×2 (08:39→21:41)
[2022-04-03] MEDS ORDERED: Ibuprofen 600 MG TABLET PO ONE (16:10)
[2022-04-04 10:10] LABS: Hematocrit 31.9 % (35.3-44.9); Hemoglobin 10.8 g/dL (11.5-15.4); Immature Platelets 11.2 % (1.1-6.1); Mean Corpuscular HGB Conc 33.9 g/dL (31.6-35.5); Mean Corpuscular Hemoglobin 29.5 pg (28.0-33.3); Mean Corpuscular Volume 87.2 fL (83.0-100.0); Red Blood Count 3.66 M/mcL (3.82-4.97); Red Cell Distribution Width 18.7 % (11.5-14.5)
[2022-04-04 10:19] LABS: Platelet Count 35 K/mcL (140-400)
[2022-04-04] MEDS: Nicotine 14 MG PATCH.TD24 TD SCH (10:24)
[2022-04-04] MEDS: Pregabalin 75 MG CAPSULE PO SCH ×3 (10:24→21:24)
[2022-04-04] MEDS: Thiamine (B-1) 100 MG TABLET PO SCH (10:24)
[2022-04-04] MEDS: Lactulose Oral Soln 20 GM/30 ML UDC PO SCH ×3 (10:24→23:43)
[2022-04-04 10:25] LABS: Potassium 3.8 mEq/L (3.5-5.1)
[2022-04-04] MEDS ORDERED: Lactulose Oral Soln 20 GM/30 ML UDC RC SCH (10:29)
[2022-04-04 10:32] LABS: Lymphocytes # 0.7 K/mcL (0.6-4.6); Monocytes # 0.2 K/mcL (0.0-1.3)
[2022-04-04 10:33] LABS: Platelet Estimate Decreased (Normal)
[2022-04-04] MEDS ORDERED: Lactulose 200 GM, Sodium Chloride IRRigation 700 ML RC SCH ×2 (11:57→17:00)
[2022-04-04] MEDS ORDERED: Benzocaine 20% 12 APPL GEL..GRAM. TP PRN (20:56)
[2022-04-05] MEDS: Lactulose Oral Soln 20 GM/30 ML UDC PO SCH ×4 (04:51→23:39)
[2022-04-05 08:56] LABS: BUN/Creatinine Ratio 16 (6-26); Blood Urea Nitrogen 12 mg/dL (6-20); Calcium 8.4 mg/dL (8.6-10.3); Carbon Dioxide 20 mEq/L (23-29); Chloride 109 mEq/L (98-107); Glucose 169 mg/dL (70-105); Osmolality,Calculated 284 (280-300); Potassium 3.5 mEq/L (3.5-5.1); Sodium 135 mEq/L (136-145)
[2022-04-05] MEDS: Thiamine (B-1) 100 MG TABLET PO SCH (09:48)
[2022-04-05] MEDS: Nicotine 14 MG PATCH.TD24 TD SCH (09:48)
[2022-04-05] MEDS: Pregabalin 75 MG CAPSULE PO SCH ×3 (09:49→21:28)
[2022-04-05] MEDS: *HR* OxyCODONE Immed Rel 5 MG TABLET PO PRN ×2 (15:42→21:37)
[2022-04-06] MEDS ORDERED: Ibuprofen 800 MG TABLET PO ONE (02:16)
[2022-04-06] MEDS ORDERED: Prochlorperazine 10 MG/2 ML VIAL IVP ONE (02:17)
[2022-04-06] MEDS: Lactulose Oral Soln 20 GM/30 ML UDC PO SCH ×3 (05:16→17:33)
[2022-04-06 06:57] LABS: Basophils % 0.6 %; Eosinophils # 0.1 K/mcL (0.0-0.6); Eosinophils % 3.3 %; Hematocrit 29.6 % (35.3-44.9); Hemoglobin 9.8 g/dL (11.5-15.4); Immature Granulocytes % 0.6 % (0-4); Immature Platelets 11.8 % (1.1-6.1); Lymphocytes # 1.1 K/mcL (0.6-4.6); Lymphocytes % 30.4 %; Mean Corpuscular HGB Conc 33.1 g/dL (31.6-35.5); Mean Corpuscular Hemoglobin 29.3 pg (28.0-33.3); Mean Corpuscular Volume 88.4 fL (83.0-100.0); Monocytes # 0.4 K/mcL (0.0-1.3); Monocytes % 12.3 %; Neutrophils # 1.9 K/mcL (1.6-8.9); Red Blood Count 3.35 M/mcL (3.82-4.97); Red Cell Distribution Width 18.1 % (11.5-14.5); Segmented Neutrophils % 52.8 %; White Blood Count 3.6 K/mcL (4.3-11.1)
[2022-04-06 06:58] LABS: Platelet Count 46 K/mcL (140-400)
[2022-04-06 07:15] LABS: Calcium 8.1 mg/dL (8.6-10.3); Potassium 3.7 mEq/L (3.5-5.1)
[2022-04-06] MEDS: Thiamine (B-1) 100 MG TABLET PO SCH (10:26)
[2022-04-06] MEDS: Nicotine 14 MG PATCH.TD24 TD SCH (10:26)
[2022-04-06] MEDS: Pregabalin 75 MG CAPSULE PO SCH ×3 (10:26→21:26)
[2022-04-06] MEDS: *HR* OxyCODONE Immed Rel 5 MG TABLET PO PRN ×2 (10:53→17:35)
[2022-04-06] MEDS: Ipratropium/Albuterol Neb 3 ML IH PRN (11:04)
[2022-04-07] MEDS: *HR* OxyCODONE Immed Rel 5 MG TABLET PO PRN ×3 (00:28→20:37)
[2022-04-07] MEDS: Lactulose Oral Soln 20 GM/30 ML UDC PO SCH ×5 (00:28→23:52)
[2022-04-07 01:40] LABS: Basophils % 0.6 %; Eosinophils # 0.1 K/mcL (0.0-0.6); Eosinophils % 3.8 %; Hematocrit 28.5 % (35.3-44.9); Hemoglobin 9.5 g/dL (11.5-15.4); Immature Granulocytes % 0.3 % (0-4); Immature Platelets 10.8 % (1.1-6.1); Lymphocytes # 0.7 K/mcL (0.6-4.6); Lymphocytes % 20.9 %; Mean Corpuscular HGB Conc 33.3 g/dL (31.6-35.5); Mean Corpuscular Volume 86.9 fL (83.0-100.0); Monocytes # 0.4 K/mcL (0.0-1.3); Monocytes % 12.5 %; Neutrophils # 2.1 K/mcL (1.6-8.9); Red Blood Count 3.28 M/mcL (3.82-4.97); Segmented Neutrophils % 61.9 %; White Blood Count 3.4 K/mcL (4.3-11.1)
[2022-04-07 01:44] LABS: Platelet Count 45 K/mcL (140-400)
[2022-04-07 02:00] LABS: Calcium 7.9 mg/dL (8.6-10.3); Potassium 3.9 mEq/L (3.5-5.1)
[2022-04-07] MEDS: Thiamine (B-1) 100 MG TABLET PO SCH (09:24)
[2022-04-07] MEDS: Pregabalin 75 MG CAPSULE PO SCH ×3 (09:24→20:43)
[2022-04-07] MEDS: Torsemide 20 MG TABLET PO SCH (09:25)
[2022-04-07] MEDS: Nicotine 14 MG PATCH.TD24 TD SCH (09:25)
[2022-04-07] MEDS ORDERED: Pregabalin 50 MG CAPSULE ONE (20:34)
[2022-04-07] MEDS ORDERED: *HR* OxyCODONE Immed Rel 5 MG TABLET ONE (20:34)
[2022-04-07] MEDS ORDERED: Lactulose Oral Soln 20 GM/30 ML UDC ONE (20:35)
[2022-04-08] MEDS: *HR* OxyCODONE Immed Rel 5 MG TABLET PO PRN ×4 (02:35→22:58)
[2022-04-08] MEDS: Lactulose Oral Soln 20 GM/30 ML UDC PO SCH ×4 (05:57→22:58)
[2022-04-08] MEDS: Thiamine (B-1) 100 MG TABLET PO SCH (08:56)
[2022-04-08] MEDS: Nicotine 14 MG PATCH.TD24 TD SCH (08:59)
[2022-04-08] MEDS: Pregabalin 75 MG CAPSULE PO SCH ×3 (08:59→20:18)
[2022-04-08] MEDS: Torsemide 20 MG TABLET PO SCH (08:59)
[2022-04-09] MEDS: Ondansetron ODT 4 MG TAB.RAPDIS SL PRN (05:32)
[2022-04-09] MEDS: Lactulose Oral Soln 20 GM/30 ML UDC PO SCH ×3 (06:15→17:36)
[2022-04-09] MEDS: Torsemide 20 MG TABLET PO SCH (09:29)
[2022-04-09] MEDS: Thiamine (B-1) 100 MG TABLET PO SCH (09:30)
[2022-04-09] MEDS: Pregabalin 75 MG CAPSULE PO SCH ×3 (09:30→21:23)
[2022-04-09] MEDS: Nicotine 14 MG PATCH.TD24 TD SCH (09:31)
[2022-04-09] MEDS: *HR* OxyCODONE Immed Rel 5 MG TABLET PO PRN ×2 (12:30→21:24)
[2022-04-10] MEDS: Ondansetron ODT 4 MG TAB.RAPDIS SL PRN ×2 (01:43→17:43)
[2022-04-10] MEDS: Lactulose Oral Soln 20 GM/30 ML UDC PO SCH ×5 (02:19→23:12)
[2022-04-10] MEDS: *HR* OxyCODONE Immed Rel 5 MG TABLET PO PRN ×3 (06:26→21:57)
[2022-04-10] MEDS: Torsemide 20 MG TABLET PO SCH (09:32)
[2022-04-10] MEDS: Pregabalin 75 MG CAPSULE PO SCH ×3 (09:32→21:58)
[2022-04-10] MEDS: Thiamine (B-1) 100 MG TABLET PO SCH (09:33)
[2022-04-10] MEDS: Nicotine 14 MG PATCH.TD24 TD SCH (09:33)
[2022-04-11] MEDS: Lactulose Oral Soln 20 GM/30 ML UDC PO SCH ×3 (05:46→18:10)
[2022-04-11] MEDS: Thiamine (B-1) 100 MG TABLET PO SCH (08:23)
[2022-04-11] MEDS: Pregabalin 75 MG CAPSULE PO SCH ×3 (08:23→20:33)
[2022-04-11] MEDS: Torsemide 20 MG TABLET PO SCH (08:28)
[2022-04-11] MEDS: Nicotine 14 MG PATCH.TD24 TD SCH (08:29)
[2022-04-11] MEDS: *HR* OxyCODONE Immed Rel 5 MG TABLET PO PRN ×2 (12:15→18:15)
[2022-04-12] MEDS: Lactulose Oral Soln 20 GM/30 ML UDC PO SCH ×5 (00:21→23:35)
[2022-04-12] MEDS ORDERED: Acetaminophen/Butalbital/CaffeineTABLET PO PRN (09:37)
[2022-04-12] MEDS ORDERED: Acetaminophen/Butalbital/CaffeineTABLET PO ONE (09:44)
[2022-04-12] MEDS: Nicotine 14 MG PATCH.TD24 TD SCH (09:59)
[2022-04-12] MEDS: Thiamine (B-1) 100 MG TABLET PO SCH (10:00)
[2022-04-12] MEDS: Torsemide 20 MG TABLET PO SCH (10:00)
[2022-04-12] MEDS: Pregabalin 75 MG CAPSULE PO SCH ×3 (10:00→20:44)
[2022-04-12] MEDS ORDERED: Ibuprofen 400 MG TABLET PO PRN (11:52)
[2022-04-12] MEDS: *HR* OxyCODONE Immed Rel 5 MG TABLET PO PRN ×2 (14:43→20:45)
[2022-04-12] MEDS: Ipratropium/Albuterol Neb 3 ML IH PRN (15:01)
[2022-04-12] MEDS: Ondansetron ODT 4 MG TAB.RAPDIS SL PRN (19:48)
[2022-04-12] MEDS ORDERED: *HR* Promethazine 25 MG/ML VIAL IM ONE (23:41)
[2022-04-13 02:16] LABS: Basophils % 0.6 %; Red Cell Distribution Width 17.5 % (11.5-14.5)
[2022-04-13 02:18] LABS: Eosinophils # 0.1 K/mcL (0.0-0.6); Eosinophils % 1.4 %; Hematocrit 27.9 % (35.3-44.9); Hemoglobin 9.4 g/dL (11.5-15.4); Immature Granulocytes % 0.4 % (0-4); Lymphocytes # 1.1 K/mcL (0.6-4.6); Lymphocytes % 15.1 %; Mean Corpuscular HGB Conc 33.7 g/dL (31.6-35.5); Mean Corpuscular Hemoglobin 28.8 pg (28.0-33.3); Mean Corpuscular Volume 85.6 fL (83.0-100.0); Monocytes # 0.9 K/mcL (0.0-1.3); Monocytes % 13.4 %; Red Blood Count 3.26 M/mcL (3.82-4.97); Segmented Neutrophils % 69.1 %
[2022-04-13 02:32] LABS: Neutrophils # 4.8 K/mcL (1.6-8.9); Platelet Count 55 K/mcL (140-400)
[2022-04-13 02:39] LABS: Calcium 7.4 mg/dL (8.6-10.3); Potassium 2.9 mEq/L (3.5-5.1)
[2022-04-13] MEDS: *HR* OxyCODONE Immed Rel 5 MG TABLET PO PRN ×4 (02:59→22:38)
[2022-04-13] MEDS: Lactulose Oral Soln 20 GM/30 ML UDC PO SCH ×3 (05:55→17:46)
[2022-04-13] MEDS: Nicotine 14 MG PATCH.TD24 TD SCH (09:19)
[2022-04-13] MEDS: Thiamine (B-1) 100 MG TABLET PO SCH (09:19)
[2022-04-13] MEDS: Torsemide 20 MG TABLET PO SCH (09:19)
[2022-04-13] MEDS: Pregabalin 75 MG CAPSULE PO SCH ×3 (09:20→20:24)
[2022-04-13] MEDS: Ondansetron ODT 4 MG TAB.RAPDIS SL PRN ×2 (12:18→20:24)
[2022-04-13] MEDS ORDERED: Fluconazole 150 MG TABLET PO ONE (18:28)
[2022-04-14] MEDS: Lactulose Oral Soln 20 GM/30 ML UDC PO SCH ×3 (00:25→12:37)
[2022-04-14 03:26] LABS: Red Cell Distribution Width 17.3 % (11.5-14.5)
[2022-04-14 03:28] LABS: Basophils % 0.6 %; Eosinophils # 0.1 K/mcL (0.0-0.6); Eosinophils % 2.6 %; Hematocrit 28.4 % (35.3-44.9); Hemoglobin 9.4 g/dL (11.5-15.4); Immature Granulocytes % 0.6 % (0-4); Immature Platelets 14.3 % (1.1-6.1); Lymphocytes # 0.9 K/mcL (0.6-4.6); Lymphocytes % 16.3 %; Mean Corpuscular HGB Conc 33.1 g/dL (31.6-35.5); Mean Corpuscular Hemoglobin 29.6 pg (28.0-33.3); Mean Corpuscular Volume 89.3 fL (83.0-100.0); Monocytes # 0.5 K/mcL (0.0-1.3); Monocytes % 9.9 %; Neutrophils # 3.7 K/mcL (1.6-8.9); Red Blood Count 3.18 M/mcL (3.82-4.97); White Blood Count 5.3 K/mcL (4.3-11.1)
[2022-04-14 03:57] LABS: Calcium 7.7 mg/dL (8.6-10.3); Platelet Count 48 K/mcL (140-400); Potassium 3.4 mEq/L (3.5-5.1)
[2022-04-14] MEDS ORDERED: D5% in Water 1,000 ML IVC PRN (04:05)
[2022-04-14] MEDS ORDERED: *HR* Dextrose 50 % in Water (Syg) 50 ML SYRINGE IVP PRN (04:05)
[2022-04-14] MEDS ORDERED: Dextrose Gel 15 GM/37.5 ML TUBE PO PRN ×2 (04:05)
[2022-04-14] MEDS: Insulin LISPRO 300 UNITS/3 ML VIAL SUBQ SCH ×2 (04:44→09:22)
[2022-04-14] MEDS: *HR* OxyCODONE Immed Rel 5 MG TABLET PO PRN ×2 (06:41→12:45)
[2022-04-14] MEDS ORDERED: Insulin LISPRO 300 UNITS/3 ML VIAL SUBQ SCH (08:53)
[2022-04-14] MEDS: Pregabalin 75 MG CAPSULE PO SCH ×2 (09:18→15:12)
[2022-04-14] MEDS: Torsemide 20 MG TABLET PO SCH (09:18)
[2022-04-14] MEDS: Thiamine (B-1) 100 MG TABLET PO SCH (09:18)
[2022-04-14] MEDS: Nicotine 14 MG PATCH.TD24 TD SCH (09:22)
[2022-04-14] MEDS ORDERED: 0.9 % Sodium Chloride 500 ML IVC SCH (11:45)
[2022-04-14 15:40] LABS: Adenovirus Not Detected (Not Detect); Bordetella Pertussis Not Detected (Not Detect); Chlamydophila pneumoniae Not Detected (Not Detect); Coronavirus 229E Not Detected (Not Detect); Coronavirus HKU1 Not Detected (Not Detect); Coronavirus NL63 Not Detected (Not Detect); Coronavirus OC43 Not Detected (Not Detect); Human Metapneumovirus Not Detected (Not Detect); Human Rhinovirus/Enterovirus Not Detected (Not Detect); Influenza A Subtype 2009 H1 Not Detected (Not Detect); Influenza B Not Detected (Not Detect); Mycoplasma pneumoniae Not Detected (Not Detect); Parainfluenza Virus 1 Not Detected (Not Detect); Parainfluenza Virus 2 Not Detected (Not Detect); Parainfluenza Virus 3 Not Detected (Not Detect); Parainfluenza Virus 4 Not Detected (Not Detect); Respiratory Syncytial Virus Not Detected (Not Detect); SARS-CoV-2 Not Detected (Not Detect)
[2022-04-14 15:46] VITALS: BP 130/76; PULSE 65; TEMP 98.1; O2SAT 99
== END 2022-04-14 17:00 ==
LOC: 3ANU 01:50 → EMEROOARM 01:50 → SUATTDRO 12:54 → 3ANU 14:52
PROVIDERS: ADMIT Pharmacist; ATTEND Registered Nurse

== ENCOUNTER 2022-06-05 12:32 | Inpatient (IN) ==
[2022-06-05 13:52] LABS: Hematocrit 35.2 % (35.3-44.9); Hemoglobin 11.4 g/dL (11.5-15.4); Mean Corpuscular HGB Conc 32.4 g/dL (31.6-35.5)
[2022-06-05 13:54] LABS: Eosinophils # 0.1 K/mcL (0.0-0.6); Immature Platelets 14.6 % (1.1-6.1); Mean Corpuscular Volume 92.6 fL (83.0-100.0); Mean Platelet Volume 13.2 fL (9.4-12.4); Red Cell Distribution Width 15.3 % (11.5-14.5); White Blood Count 8.4 K/mcL (4.3-11.1)
[2022-06-05 13:58] LABS: Platelet Count 43 K/mcL (140-400)
[2022-06-05 14:00] LABS: Alanine Aminotransferase 36 Units/L (7-52); Albumin/Globulin Ratio 0.9 (1.1-2.2); Alkaline Phosphatase 118 Units/L (34-104); Aspartate Amino Transferase 48 Units/L (13-39); BUN/Creatinine Ratio 15 (6-26); Bilirubin,Direct 1.2 mg/dL (0.0-0.2); Bilirubin,Total 4.2 mg/dL (0.3-1.0); Blood Urea Nitrogen 24 mg/dL (6-20); Carbon Dioxide 23 mEq/L (23-29); Chloride 104 mEq/L (98-107); Globulin 3.4 g/dL (2.4-3.5); Glucose 163 mg/dL (70-105); Lipase 46 Units/L (11-82); Osmolality,Calculated 284 (280-300); Potassium 3.8 mEq/L (3.5-5.1); Sodium 133 mEq/L (136-145); Total Protein 6.4 g/dL (6.4-8.9); Troponin I < 0.03 ng/mL (< 0.04)
[2022-06-05 14:23] LABS: Lymphocytes # 0.2 K/mcL (0.6-4.6)
[2022-06-05 14:28] LABS: Platelet Estimate Marked Decrease (Normal)
[2022-06-05] MEDS ORDERED: 0.9 % Sodium Chloride 1,000 ML IVC ONE (14:52)
[2022-06-05] MEDS ORDERED: Iopamidol - 370 500 ML MLS IVP ONE (14:53)
[2022-06-05 15:50] LABS: Ethanol < 10 mg/dL (Less than 10)
[2022-06-05 17:26] LABS: Bilirubin,Urine Negative (Negative); Blood,Urine Trace (Negative); Clarity,Urine Clear (Clear); Color,Urine Light-Orange (Yellow); Glucose,Urine (UA) 30 mg/dL (Normal); Ketones,Urine Trace mg/dL (Negative); Leukocyte Esterase,Urine Negative (Negative); Mucus,Urine Few per lpf (None-Few); Nitrite,Urine Negative (Negative); Protein,Urine 30 mg/dL (Neg-Trace); Specific Gravity,Urine > 1.030 (1.010-1.025); Squamous Epithelial Cell,Urine Few per hpf (None-Few); Urobilinogen,Urine Normal (Normal)
[2022-06-05 17:35] LABS: Amphetamine Screen,Urine Positive ng/mL (Cutoff=1000); Barbiturate Screen,Urine Negative ng/mL (Cutoff=200); Benzodiazepines Screen,Urine Negative ng/mL (Cutoff=200); Cannabinoid Screen,Urine Negative ng/mL (Cutoff = 50); Cocaine Screen,Urine Negative ng/mL (Cutoff= 300); Opiate Screen,Urine Negative ng/mL (Cutoff=300); Phencyclidine Screen,Urine Negative ng/mL (Cutoff=25)
[2022-06-05] MEDS ORDERED: GI Cocktail 40 ML EACH PO ONE (18:21)
[2022-06-05] MEDS: Nitroglycerin 0.4 MG TAB.SUBL SL PRN ×2 (18:28→18:33)
[2022-06-05] MEDS ORDERED: *HR* FentaNYL (PF) 100 MCG/2 ML VIAL IVP ONE (19:11)
[2022-06-05] MEDS ORDERED: cefTRIAXone 1,000 MG in 0.9 % Sodium Chloride 10 ML IVP ONE (19:37)
[2022-06-05] MEDS ORDERED: Naloxone 0.4 MG/ML INJ IVP PRN (20:26)
[2022-06-05] MEDS ORDERED: Melatonin 3 MG TABLET PO PRN (20:26)
[2022-06-05] MEDS ORDERED: Acetaminophen 325 MG TABLET PO PRN (20:26)
[2022-06-05] MEDS ORDERED: D5% in Water 1,000 ML IVC PRN (20:47)
[2022-06-05] MEDS ORDERED: *HR* Dextrose 50 % in Water (Syg) 50 ML SYRINGE IVP PRN (20:47)
[2022-06-05] MEDS ORDERED: Dextrose Gel 15 GM/37.5 ML TUBE PO PRN ×2 (20:47)
[2022-06-05] MEDS: *HR* HYDROcodone/Acet 5/325 mg TABLET PO PRN (21:33)
[2022-06-05] MEDS: 0.9 % Sodium Chloride 1,000 ML IVC SCH (21:35)
[2022-06-05] MEDS: Insulin DETEMIR 100 UNIT/ML X5UNITS SUBQ SCH (21:35)
[2022-06-05 21:36] LABS: INR 2.4; Prothrombin Time 26.3 Seconds (9.4-12.1)
[2022-06-05 21:39] LABS: Activated Partial Thrombo Time 35.1 Seconds (26.0-36.0)
[2022-06-05 21:47] LABS: Acetaminophen < 10 mcg/mL (10-20); Salicylate < 2.5 mg/dL (15.0-30.0)
[2022-06-05] MEDS ORDERED: 0.9 % Sodium Chloride 500 ML IVC ONE (21:53)
[2022-06-05 22:10] LABS: Potassium,Urine 50.4 mEq/L; Protein/Creatinine Ratio,Urine 0.13 mg/mg (0.00-0.20); Sodium, Urine 11.5 mEq/L
[2022-06-05] MEDS: Lactulose Oral Soln 20 GM/30 ML UDC PO SCH (22:30)
[2022-06-05] MEDS: Insulin LISPRO 300 UNITS/3 ML VIAL SUBQ SCH (22:30)
[2022-06-05] MEDS: *HR* OxyCODONE Immed Rel 5 MG TABLET PO PRN (22:56)
[2022-06-05] MEDS: Azithromycin 500 MG in 0.9 % Sodium Chloride 250 ML IVPB SCH (22:59)
[2022-06-05] MEDS: Ondansetron 4 MG/2 ML VIAL IVP PRN (23:23)
[2022-06-05] MEDS: Ipratropium/Albuterol Neb 3 ML IH SCH (23:25)
[2022-06-05] MEDS: Vancomycin 1,250 MG/262.5 ML IV.SOLN IVPB SCH (23:54)
[2022-06-06] MEDS: Ipratropium/Albuterol Neb 3 ML IH SCH ×6 (03:29→23:19)
[2022-06-06] MEDS: 0.9 % Sodium Chloride 1,000 ML IVC SCH ×4 (06:02→15:33)
[2022-06-06] MEDS: *HR* HYDROcodone/Acet 5/325 mg TABLET PO PRN ×2 (06:12→12:57)
[2022-06-06] MEDS: Insulin LISPRO 300 UNITS/3 ML VIAL SUBQ SCH ×4 (07:15→20:25)
[2022-06-06] MEDS ORDERED: cefTRIAXone 1,000 MG in 0.9 % Sodium Chloride 10 ML IVP SCH (09:00)
[2022-06-06] MEDS: cefTRIAXone 2,000 MG in 0.9 % Sodium Chloride 10 ML IVP SCH (09:02)
[2022-06-06] MEDS: *HR* OxyCODONE Immed Rel 5 MG TABLET PO PRN ×3 (09:03→23:57)
[2022-06-06] MEDS: Lactulose Oral Soln 20 GM/30 ML UDC PO SCH ×3 (09:03→20:25)
[2022-06-06 09:42] LABS: Hematocrit 30.2 % (35.3-44.9); Hemoglobin 9.9 g/dL (11.5-15.4); Mean Corpuscular HGB Conc 32.8 g/dL (31.6-35.5); Mean Corpuscular Hemoglobin 30.1 pg (28.0-33.3); Mean Corpuscular Volume 91.8 fL (83.0-100.0); Mean Platelet Volume 13.1 fL (9.4-12.4); Red Blood Count 3.29 M/mcL (3.82-4.97); Red Cell Distribution Width 15.9 % (11.5-14.5); White Blood Count 7.6 K/mcL (4.3-11.1)
[2022-06-06 09:49] LABS: Prothrombin Time 32.8 Seconds (9.4-12.1)
[2022-06-06 09:55] LABS: Albumin 2.5 g/dL (3.5-5.7); Albumin/Globulin Ratio 0.9 (1.1-2.2); Bilirubin,Total 2.7 mg/dL (0.3-1.0); Chol/HDL Ratio 5.1 (0-4.9); Globulin 2.9 g/dL (2.4-3.5); Magnesium 1.3 mg/dL (1.6-2.6); Phosphorous 5.6 mg/dL (2.7-4.5); Potassium 4.2 mEq/L (3.5-5.1); Total Protein 5.4 g/dL (6.4-8.9)
[2022-06-06 09:56] LABS: Platelet Count 36 K/mcL (140-400)
[2022-06-06] MEDS: Vancomycin 1,250 MG/262.5 ML IV.SOLN IVPB SCH (11:27)
[2022-06-06 11:46] LABS: Platelet Estimate Decreased (Normal)
[2022-06-06 11:57] LABS: Neutrophils # 6.1 K/mcL (1.6-8.9)
[2022-06-06] MEDS ORDERED: Methyl Salicylate/Menthol 85 APPL/85 GM TUBE TP PRN (12:03)
[2022-06-06] MEDS: Albumin 25% 25gram/100mL 25 GM/100 ML IV.SOLN IVC SCH ×4 (17:55→23:49)
[2022-06-06] MEDS: Insulin DETEMIR 100 UNIT/ML X5UNITS SUBQ SCH (20:26)
[2022-06-06] MEDS: rOPINIRole 0.25 MG TABLET PO SCH (21:03)
[2022-06-06] MEDS: Pregabalin 75 MG CAPSULE PO SCH (21:03)
[2022-06-06] MEDS: Azithromycin 500 MG in 0.9 % Sodium Chloride 250 ML IVPB SCH (23:53)
[2022-06-07] MEDS: Ondansetron 4 MG/2 ML VIAL IVP PRN (01:06)
[2022-06-07] MEDS: Ipratropium/Albuterol Neb 3 ML IH SCH ×6 (03:36→23:06)
[2022-06-07] MEDS: Vancomycin 1,250 MG/262.5 ML IV.SOLN IVPB SCH (07:27)
[2022-06-07] MEDS: Insulin LISPRO 300 UNITS/3 ML VIAL SUBQ SCH ×4 (07:44→20:40)
[2022-06-07 08:47] LABS: Basophils % 0.2 %; Immature Granulocytes % 0.5 % (0-4); White Blood Count 4.4 K/mcL (4.3-11.1)
[2022-06-07 08:49] LABS: Eosinophils # 0.1 K/mcL (0.0-0.6); Eosinophils % 2.5 %; Hematocrit 24.6 % (35.3-44.9); Hemoglobin 8.2 g/dL (11.5-15.4); Immature Platelets 12.1 % (1.1-6.1); Lymphocytes # 0.5 K/mcL (0.6-4.6); Lymphocytes % 10.5 %; Mean Corpuscular HGB Conc 33.3 g/dL (31.6-35.5); Mean Corpuscular Hemoglobin 30.3 pg (28.0-33.3); Mean Corpuscular Volume 90.8 fL (83.0-100.0); Mean Platelet Volume 12.1 fL (9.4-12.4); Monocytes # 0.3 K/mcL (0.0-1.3); Monocytes % 5.7 %; Red Blood Count 2.71 M/mcL (3.82-4.97); Red Cell Distribution Width 15.5 % (11.5-14.5); Segmented Neutrophils % 80.6 %
[2022-06-07 08:59] LABS: Neutrophils # 3.6 K/mcL (1.6-8.9)
[2022-06-07 09:01] LABS: Platelet Count 27 K/mcL (140-400)
[2022-06-07 09:09] LABS: Calcium 8.2 mg/dL (8.6-10.3); Potassium 3.6 mEq/L (3.5-5.1)
[2022-06-07] MEDS: Lactulose Oral Soln 20 GM/30 ML UDC PO SCH ×3 (09:24→18:52)
[2022-06-07] MEDS: cefTRIAXone 2,000 MG in 0.9 % Sodium Chloride 10 ML IVP SCH (09:29)
[2022-06-07] MEDS: Pregabalin 75 MG CAPSULE PO SCH ×3 (09:30→20:39)
[2022-06-07 10:16] LABS: Hypochromasia Present (Not Present)
[2022-06-07 10:17] LABS: Large Platelets Present (Not Present); Platelet Estimate Decreased (Normal); Poikilocytosis 1+ (Not Present); Polychromasia 1+ (Not Present)
[2022-06-07] MEDS: *HR* OxyCODONE Immed Rel 5 MG TABLET PO PRN ×3 (11:09→23:53)
[2022-06-07] MEDS: Albumin 25% 25gram/100mL 25 GM/100 ML IV.SOLN IVC SCH ×4 (17:40→23:44)
[2022-06-07] MEDS: rOPINIRole 0.25 MG TABLET PO SCH (20:39)
[2022-06-07] MEDS: Insulin DETEMIR 100 UNIT/ML X5UNITS SUBQ SCH (20:41)
[2022-06-07] MEDS: Azithromycin 500 MG in 0.9 % Sodium Chloride 250 ML IVPB SCH (23:44)
[2022-06-08] MEDS: Ipratropium/Albuterol Neb 3 ML IH SCH ×5 (03:47→19:43)
[2022-06-08 05:16] LABS: Hematocrit 23.8 % (35.3-44.9)
[2022-06-08 05:18] LABS: Basophils % 0.3 %; Eosinophils # 0.2 K/mcL (0.0-0.6); Eosinophils % 4.9 %; Hemoglobin 7.8 g/dL (11.5-15.4); Immature Platelets 11.1 % (1.1-6.1); Lymphocytes % 14.8 %; Mean Corpuscular HGB Conc 32.8 g/dL (31.6-35.5); Mean Corpuscular Hemoglobin 29.7 pg (28.0-33.3); Mean Corpuscular Volume 90.5 fL (83.0-100.0); Mean Platelet Volume 13.1 fL (9.4-12.4); Monocytes # 0.4 K/mcL (0.0-1.3); Monocytes % 14.1 %; Neutrophils # 1.9 K/mcL (1.6-8.9); Red Blood Count 2.63 M/mcL (3.82-4.97); Red Cell Distribution Width 15.4 % (11.5-14.5); Segmented Neutrophils % 63.9 %
[2022-06-08 05:20] LABS: Lymphocytes # 0.4 K/mcL (0.6-4.6)
[2022-06-08 05:22] LABS: Platelet Count 28 K/mcL (140-400)
[2022-06-08 05:38] LABS: Calcium 8.5 mg/dL (8.6-10.3); Potassium 3.4 mEq/L (3.5-5.1)
[2022-06-08] MEDS: *HR* OxyCODONE Immed Rel 5 MG TABLET PO PRN ×3 (06:28→20:31)
[2022-06-08 07:00] LABS: Anisocytosis 1+ (Not Present); Platelet Estimate Marked Decrease (Normal)
[2022-06-08 07:46] LABS: INR 2.2; Prothrombin Time 24.6 Seconds (9.4-12.1)
[2022-06-08 08:10] LABS: Hemoglobin 7.8 g/dL (11.5-15.4)
[2022-06-08 08:12] LABS: Basophils % 0.8 %; Eosinophils # 0.1 K/mcL (0.0-0.6); Hematocrit 23.8 % (35.3-44.9); Immature Granulocytes % 1.5 % (0-4); Immature Platelets 12.2 % (1.1-6.1); Lymphocytes # 0.4 K/mcL (0.6-4.6); Lymphocytes % 13.7 %; Mean Corpuscular HGB Conc 32.8 g/dL (31.6-35.5); Mean Corpuscular Hemoglobin 29.5 pg (28.0-33.3); Mean Corpuscular Volume 90.2 fL (83.0-100.0); Mean Platelet Volume 12.9 fL (9.4-12.4); Monocytes # 0.5 K/mcL (0.0-1.3); Monocytes % 17.6 %; Neutrophils # 1.6 K/mcL (1.6-8.9); Red Blood Count 2.64 M/mcL (3.82-4.97); Red Cell Distribution Width 15.2 % (11.5-14.5); Segmented Neutrophils % 61.4 %; White Blood Count 2.6 K/mcL (4.3-11.1)
[2022-06-08 08:22] LABS: Platelet Count 29 K/mcL (140-400)
[2022-06-08] MEDS: Pregabalin 75 MG CAPSULE PO SCH ×3 (08:38→20:33)
[2022-06-08] MEDS: cefTRIAXone 2,000 MG in 0.9 % Sodium Chloride 10 ML IVP SCH (08:39)
[2022-06-08] MEDS: Lactulose Oral Soln 20 GM/30 ML UDC PO SCH ×3 (08:40→20:33)
[2022-06-08] MEDS: Insulin LISPRO 300 UNITS/3 ML VIAL SUBQ SCH ×4 (08:44→21:01)
[2022-06-08 16:08] VITALS: TEMP 98.1
[2022-06-08] MEDS: Albumin 25% 25gram/100mL 25 GM/100 ML IV.SOLN IVC SCH ×3 (16:58→20:52)
[2022-06-08 20:03] VITALS: BP 168/72; PULSE 96; O2SAT 95
[2022-06-08] MEDS: Azithromycin 500 MG in 0.9 % Sodium Chloride 250 ML IVPB SCH (20:31)
[2022-06-08] MEDS: rOPINIRole 0.25 MG TABLET PO SCH (20:32)
[2022-06-08] MEDS: Insulin DETEMIR 100 UNIT/ML X5UNITS SUBQ SCH (20:53)
[2022-06-08] MEDS ORDERED: Albumin Human 25% 25 GM/100 ML IV.SOLN IVPB ONE (21:45)
== END 2022-06-08 23:59 | disposition other institution (70) | DRG 720 ==
LOC: EMEROOARM 12:32 → 3BNU 12:32
PROVIDERS: ADMIT Internal Medicine; ATTEND Internal Medicine